=== PATIENT | male | born 2000 | race American Indian/Alaskan Native ===

== ENCOUNTER 2019-01-07 09:36 | Emergency (ER) | payer OTHER, BC ==
[2019-01-07] MEDS ORDERED: IBUPROFEN 800 MG TAB PO ONE (11:06)
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
[2019-01-07 13:50] VITALS: BP 111/73
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
== END 2019-01-07 14:14 | disposition home or self-care (01) ==
LOC: ED 09:36
DX: S63.92XA Sprain of unspecified part of left wrist and hand, initial encounter (principal); S20.219A Contusion of unspecified front wall of thorax, initial encounter; S00.83XA Contusion of other part of head, initial encounter; S09.90XA Unspecified injury of head, initial encounter; F17.200 Nicotine dependence, unspecified, uncomplicated; Z79.1 Long term (current) use of non-steroidal anti-inflammatories (NSAID); Z79.899 Other long term (current) drug therapy; V49.49XA Driver injured in collision with other motor vehicles in traffic accident, initial encounter; Y93.89 Activity, other specified; Y92.89 Other specified places as the place of occurrence of the external cause; Y99.8 Other external cause status
CPT/HCPCS: 70450; 70486; 71046